=== PATIENT | male | born 2005 | race Hispanic/Latino ===

== ENCOUNTER 2024-04-17 08:18 | Emergency (ER) | payer OTHER ==
[2024-04-17] MEDS ORDERED: Ketorolac Tromethamine 30 MG (1 mL) VIAL ONE (10:13)
[2024-04-17] MEDS ORDERED: Boostrix 0.5 ML (Tdap) VIAL (>/=7 yrs of age) ONE (10:14)
== END 2024-04-17 10:30 | disposition home or self-care (01) ==
LOC: ERS 08:18
DX: S13.4XXA Sprain of ligaments of cervical spine, initial encounter (principal); M25.571 Pain in right ankle and joints of right foot; V49.9XXA Car occupant (driver) (passenger) injured in unspecified traffic accident, initial encounter; Z87.891 Personal history of nicotine dependence
CPT/HCPCS: 70450; 72125; 90471; 90715; 96374; G0390; J1885